=== PATIENT | female | born 1940 | race Caucasian/White ===

== ENCOUNTER 2019-10-01 12:03 | Emergency (ER) | payer OTHER ==
[~2019-10-01 12:03] MED LIST: Iopamidol-370 76% 500 ML 1 ML ONE
[2019-10-01] MEDS ORDERED: Morphine 4 MG/ML VIAL ONE (12:23)
[2019-10-01] MEDS ORDERED: Ondansetron PF 4 MG/2 ML Vial ONE (12:23)
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
[2019-10-01 12:25] LABS: #Basophils 0.1 thou/uL (0.0-0.2); #Eosinphils 0.3 thou/uL (0.0-0.7); #Lymphocytes 1.9 thou/uL (1.20-3.40); #Monocytes 0.7 thou/uL (0.11-0.59); #Neutrophils 5.6 thou/uL (1.40-6.50); %Basophils 0.7 % (0.0-1.0); %Lymphocytes 22.2 % (21.0-51.0); %Monocytes 8.2 % (0.0-10.0); %Neutrophils 65.9 % (42.0-75.0); Mean Corpuscular HGB CONC 33.3 g/dL (32.0-36.0); Mean Corpuscular Hemoglobin 29.3 pg (27.0-31.0); Mean Corpuscular Volume 88.2 fL (78.0-98.0); Mean Platelet Volume 7.6 fL (7.4-10.4); Platelet Count 229 thou/uL (130-400); RBC Distribution Width 12.6 % (11.5-14.5); Red Blood Cell (RBC) Count 4.77 mill/uL (4.20-5.40); White Blood Cell (WBC) Count 8.4 thou/uL (4.8-10.8)
[2019-10-01 12:30] LABS: INR-International Normal Ratio 1.4
[2019-10-01 12:31] LABS: PTT 30.8 sec (22.9-36.1)
[2019-10-01 12:41] LABS: ALT (SGPT) 21 U/L (8-55); AST (SGOT) 21 U/L (5-34); Albumin 4.1 g/dL (3.4-4.8); Alkaline Phosphatase 125 U/L (40-110); Anion Gap 16 mmol/L (10-20); BUN (Urea Nitrogen) 11 mg/dL (9.8-20.1); Bilirubin, Total 0.5 mg/dL (0.2-1.2); Calc. Creatinine Clearance 0 mL/min (70-130); Calcium 8.9 mg/dL (7.8-10.44); Carbon Dioxide 24 mmol/L (23-31); Chloride 101 mmol/L (98-107); Estimated GFR-MDRD 59; Globulin 3.5 g/dL (2.4-3.5); Glucose 323 mg/dL (83-110); Lipase 15 U/L (8-78); Potassium 4.3 mmol/L (3.5-5.1); Protein, Total 7.6 g/dL (6.0-8.3); Sodium 137 mmol/L (136-145)
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
[2019-10-01 14:39] LABS: Bacteria/HPF None Seen HPF (None Seen); Bilirubin Negative (Negative); Blood, Urine Trace (Negative); Clarity Clear (Clear); Glucose, Urine (Dipstick) Greater than 1000 mg/dL (Negative); Leukocyte Negative Leu/uL (Negative); Nitrite Negative (Negative); Protein, Urine (Dipstick) Negative (Neg-Trace); Squamous Epithelial 0-3 HPF (0-3); Urobilinogen Normal mg/dL (Less than 2); WBC/HPF 0-3 HPF (0-3)
== END 2019-10-01 14:34 | disposition home or self-care (01) ==
LOC: ERS 12:03
DX: S09.90XA Unspecified injury of head, initial encounter (principal); S80.812A Abrasion, left lower leg, initial encounter; R07.9 Chest pain, unspecified; I48.91 Unspecified atrial fibrillation; Z79.01 Long term (current) use of anticoagulants; V59.50XA Passenger in pick-up truck or van injured in collision with unspecified motor vehicles in traffic accident, initial encounter
CPT/HCPCS: 36415; 51701; 70450; 71045; 71260; 72125; 74177; 80053; 81003; 81015; 83605; 83690; 85025; 85610; 85730; 86850; 86900; 86901; 90471; 93005; 96374; 96375; J2270; J2405; Q9967

== ENCOUNTER 2019-10-22 10:52 | Emergency (ER) | payer MEDICARE ==
--- NOTE | 2019-10-22 11:30 | RAD ---
RADIOGRAPH CHEST 1 VIEW: DATE: 10/22/2019 HISTORY: 79-year-old female with chest pain FINDINGS: The thoracic aorta is tortuous and ectatic. There is no evidence of airspace density, cardiomegaly, p ulmonary edema, or pneumothorax. The lateral costophrenic angles are not effaced.. There are sternotomy wires. IMPRESSION: 1) No acute cardiopulmonary findings. 2) ectasia of thoracic aorta. 3) evidence of previous open-heart surgery.
[2019-10-22 11:35] LABS: #Eosinphils 0.2 thou/uL (0.0-0.7); #Lymphocytes 1.1 thou/uL (1.20-3.40); #Monocytes 0.9 thou/uL (0.11-0.59); #Neutrophils 4.8 thou/uL (1.40-6.50); %Basophils 0.7 % (0.0-1.0); %Eosinophils 3.3 % (0.0-10.0); %Lymphocytes 16.1 % (21.0-51.0); %Monocytes 12.1 % (0.0-10.0); %Neutrophils 67.9 % (42.0-75.0); Hemoglobin 12.8 g/dL (12.0-16.0); Mean Corpuscular HGB CONC 32.4 g/dL (32.0-36.0); Mean Corpuscular Hemoglobin 28.4 pg (27.0-31.0); Mean Corpuscular Volume 87.5 fL (78.0-98.0); Mean Platelet Volume 7.5 fL (7.4-10.4); Platelet Count 245 thou/uL (130-400); RBC Distribution Width 12.7 % (11.5-14.5); Red Blood Cell (RBC) Count 4.53 mill/uL (4.20-5.40)
[2019-10-22] MEDS ORDERED: Ketorolac Tromethamine 30 MG/ML VIAL ONE (11:48)
[2019-10-22] MEDS ORDERED: Lorazepam 1 MG TAB ONE (11:48)
[2019-10-22 11:57] LABS: ALT (SGPT) 14 U/L (8-55); AST (SGOT) 11 U/L (5-34); Albumin 3.9 g/dL (3.4-4.8); Alkaline Phosphatase 138 U/L (40-110); Anion Gap 12 mmol/L (10-20); BUN (Urea Nitrogen) 15 mg/dL (9.8-20.1); Bilirubin, Total 0.6 mg/dL (0.2-1.2); Calc. Creatinine Clearance 0 mL/min (70-130); Calcium 9.2 mg/dL (7.8-10.44); Carbon Dioxide 27 mmol/L (23-31); Chloride 101 mmol/L (98-107); Estimated GFR-MDRD 76; Globulin 3.1 g/dL (2.4-3.5); Glucose 265 mg/dL (83-110); Potassium 4.3 mmol/L (3.5-5.1); Sodium 136 mmol/L (136-145)
== END 2019-10-22 12:50 | disposition home or self-care (01) ==
LOC: ERS 10:52
DX: R07.2 Precordial pain (principal); R07.89 Other chest pain; E11.65 Type 2 diabetes mellitus with hyperglycemia; I10 Essential (primary) hypertension; I48.91 Unspecified atrial fibrillation; Z79.01 Long term (current) use of anticoagulants; V89.2XXA Person injured in unspecified motor-vehicle accident, traffic, initial encounter
CPT/HCPCS: 36415; 36416; 71045; 80053; 84484; 85025; 93005; 96372; J1885

== ENCOUNTER 2020-08-01 12:38 | Outpatient (CLI) | payer OTHER | END 2020-08-01 12:39 | disposition home or self-care (01) | LOC: DTY/OP 12:38 | PROVIDERS: ATTEND Nurse Practitioner Family | DX: E11.65 Type 2 diabetes mellitus with hyperglycemia (principal); Z79.4 Long term (current) use of insulin | CPT/HCPCS: 97802 ==